=== PATIENT | male | born 2000 | race Caucasian/White ===

== ENCOUNTER 2021-01-23 13:58 | Emergency (ER) | payer OTHER ==
[2021-01-23 14:51] VITALS: RESP 18; TEMP 102.1
[2021-01-23] MEDS ORDERED: SODIUM CHLORIDE 0.9% 1,000 ML IV ONE (17:06)
[2021-01-23] MEDS ORDERED: SODIUM CHLORIDE 0.9% 500 ML 500 ML IV ONE (17:06)
[2021-01-23] MEDS ORDERED: IBUPROFEN IV 800 MG in SODIUM CHLORIDE 0.9% 250 ML IV ONE (17:06)
[2021-01-23] MEDS ORDERED: ONDANSETRON 4 MG/2 ML VIAL IVP STA (17:06)
[2021-01-23] MEDS ORDERED: DEXAMETHASONE SOD PHOSPHATE 10 MG/ML 1 ML VIAL IV STA (17:06)
[2021-01-23] MEDS ORDERED: ACETAMINOPHEN ORAL SUSP 160 MG/5 ML CUP PO ONE (17:06)
[2021-01-23 17:34] LABS: Appearance,Urine Clear (Clear); Bilirubin,Urine Negative (Negative); Blood,Urine Negative (Negative); Color,Urine Yellow; Glucose,Urine (UA) Negative (Negative); Ketones,Urine 4+ (Negative); Leukocyte Esterase,Urine Negative (Negative); Nitrite,Urine Negative (Negative); Protein,Urine Trace (Negative); Specific Gravity,Urine 1.022 (1.001-1.035)
[2021-01-23 17:41] LABS: ALT 426 U/L (4-49); AST 138 U/L (17-59); African American GFR (CKD) >90 (>60 ml/min/1.73 sqM); Albumin 4.3 g/dL (3.5-5.0); Alkaline Phosphatase 273 U/L (38-126); Anion Gap 12 mmol/L; Blood Urea Nitrogen 13 mg/dL (9-20); Calcium 9.4 mg/dL (8.4-10.2); Carbon Dioxide 25 mmol/L (22-30); Chloride 106 mmol/L (98-107); Glucose 83 mg/dL (74-99); Non-African American GFR(CKD) >90 (>60 ml/min/1.73 sqM); Potassium 4.3 mmol/L (3.5-5.1); Sodium 143 mmol/L (137-145); Total Bilirubin 0.6 mg/dL (0.2-1.3); Total Protein 7.4 g/dL (6.3-8.2)
[2021-01-23] MEDS ORDERED: METOCLOPRAMIDE 5 MG/ML 2 ML VIAL IVP STA (17:49)
[2021-01-23] MEDS ORDERED: diphenhydrAMINE 50 MG/ML 1 ML VIAL IVP STA (17:49)
[2021-01-23 17:57] LABS: HCT 48.9 % (39.0-53.0); HGB 16.5 gm/dL (13.0-17.5); MCH 30.8 pg (25.0-35.0); MCHC 33.7 g/dL (31.0-37.0); MCV 91.2 fL (80.0-100.0); Mean Platelet Volume 8.1; Platelet Count 219 k/uL (150-450); RBC 5.36 m/uL (4.30-5.90); RDW 12.9 % (11.5-15.5); WBC 12.5 k/uL (4.0-11.0)
[2021-01-23 18:09] LABS: Lymphocytes # (M) 9.88 k/uL (1.0-4.8); Monocytes # (M) 0.38 k/uL (0-1.0); Neutrophils # (M) 2.25 k/uL (1.3-7.7); Neutrophils % (M) 18 %; Nucleated Red Blood Cells 0 /100 WBC (0-0); Total Cells Counted 100
[2021-01-23 18:12] LABS: Reactive Lymphocytes Present
[2021-01-23 18:58] VITALS: BP 111/71; PULSE 69
--- NOTE | 2021-01-23 19:02 | ED ---
General Adult HPI - General Chief complaint: ENT Stated complaint: [place]/Rash/SARATH Time Seen by Provider: 01/23/21 16:11 Source: patient Mode of arrival: ambulatory Limitations: no limitations - History of Present Illness Initial comments: 20 year-old male patient diagnosed with infectious mononucleosis on 01/19/21, coming in today for worsening sore throat, nausea, vomiting, and body aches. Patient states that he has been unable to hold down any food or fluids. He has been taking zofran without relief. He is unable to swallow pills so has not been able to take tylenol or motrin. States he is having some upper abdominal pain. He denies any chronic medical conditions. Denies any falls or abdominal injury. Did develop rash to the left arm today. Patient denies any recent cough, shortness of breath, chest pain, diarrhea, constipation, back pain, numbness, tingling, hematuria, dysuria, urinary urgency, urinary frequency, headache, visual changes, or any other complaints. - Related Data Previous Rx's Medication Instructions Recorded Metoclopramide [Reglan] 10 mg PO Q8H PRN #10 tab 01/23/21 predniSONE 50 mg PO DAILY #3 tab 01/23/21 Allergies Allergy/AdvReac Type Severity Reaction Status Date / Time aripiprazole [From Abilify] AdvReac Confusion Verified 04/21/18 17:13 Review of Systems ROS Statement: Those systems with pertinent positive or pertinent negative responses have been documented in the HPI. ROS Other: All systems not noted in ROS Statement are negative. Past Medical History Past Medical History: No Reported History History of Any Multi-Drug Resistant Organisms: None Reported Past Surgical History: No Surgical Hx Reported Past Psychological History: No Psychological Hx Reported Smoking Status: Never smoker Past Alcohol Use History: None Reported Past Drug Use History: None Reported General Exam Limitations: no limitations General appearance: alert, in no apparent distress, other (This is a well- developed, well-nourished adult male patient in no acute distress. Vital signs upon presentation are temperature 102.1F, pulse 130, respirations 18, blood pressure 116/77, pulse ox 98% on room air.) ENT exam: Present: mucous membranes moist, TM's normal bilaterally. Absent: normal oropharynx (Pharyngeal erythema, tonsillar hypertrophy, bilateral tonsillar exudate. Tonsils are symmetric, uvula is midline.) Neck exam: Present: normal inspection, lymphadenopathy (Bilateral anterior cervical lymphadenopathy). Absent: tenderness, meningismus Respiratory exam: Present: normal lung sounds bilaterally. Absent: respiratory distress, wheezes, rales, rhonchi, stridor Cardiovascular Exam: Present: normal rhythm, tachycardia, normal heart sounds. Absent: systolic murmur, diastolic murmur, rubs, gallop, clicks GI/Abdominal exam: Present: soft, normal bowel sounds. Absent: distended, tenderness, guarding, rebound, rigid Neurological exam: Present: alert, oriented X3, CN II-XII intact Psychiatric exam: Present: normal affect, normal mood Skin exam: Present: warm, dry, intact, normal color. Absent: rash Course Vital Signs 01/23/21 01/23/21 14:48 18:58 Temperature 102.1 F H Pulse Rate 130 H 69 Respiratory 18 18 Rate Blood Pressure 116/77 111/71 O2 Sat by Pulse 98 97 Oximetry Medical Decision Making - Medical Decision Making 20 -year-old male patient recently diagnosed with infectious mononucleosis presented to the emergency department today for evaluation of sore throat, vomiting, body aches, abdominal pain. Physical examination did reveal mild generalized abdominal tenderness. There is evidence for pharyngeal erythema with tonsillar hypertrophy and exudate. He has lymphadenopathy. Labs reviewed and did reveal mildly elevated white blood cell count. Electrolytes were normal. Did have ketones in the urine. He is given 1500 mL of normal saline. IV steroids, ibuprofen, and oral Tylenol. I did discuss findings results with him. He'll be discharged with a short course of steroids and Reglan for nausea. He is instructed to obtain liquid Tylenol Motrin [id number] so 20 swallow. He is instructed to follow-up the primary care physician for recheck in 1-2 days. Return parameters were discussed in detail. He verbalizes understanding and agrees with this plan. Case discussed with my attending Dr. Garay. - Lab Data Result diagrams: 01/23/21 17:18 01/23/21 17:18 Lab Results 01/23/21 01/23/21 01/23/21 Range/Units 17:18 17:18 17:18 WBC 12.5 H (4.0-11.0) k/uL RBC 5.36 (4.30-5.90) m/uL Hgb 16.5 (13.0-17.5) gm/dL Hct 48.9 (39.0-53.0) % MCV 91.2 (80.0-100.0) fL MCH 30.8 (25.0-35.0) pg MCHC 33.7 (31.0-37.0) g/dL RDW 12.9 (11.5-15.5) % Plt Count 219 (150-450) k/uL MPV 8.1 Sodium 143 (137-145) mmol/L Potassium 4.3 (3.5-5.1) mmol/L Chloride 106 (98-107) mmol/L Carbon Dioxide 25 (22-30) mmol/L Anion Gap 12 mmol/L BUN 13 (9-20) mg/dL Creatinine 0.87 (0.66-1.25) mg/dL Est GFR (CKD-EPI)AfAm >90 (>60 ml/min/1.73 sqM) Est GFR (CKD-EPI)NonAf >90 (>60 ml/min/1.73 sqM) Glucose 83 (74-99) mg/dL Calcium 9.4 (8.4-10.2) mg/dL Total Bilirubin 0.6 (0.2-1.3) mg/dL AST 138 H (17-59) U/L ALT 426 H (4-49) U/L Alkaline Phosphatase 273 H (38-126) U/L Total Protein 7.4 (6.3-8.2) g/dL Albumin 4.3 (3.5-5.0) g/dL Urine Color Yellow Urine Appearance Clear (Clear) Urine pH 6.0 (5.0-8.0) Ur Specific [place] 1.022 (1.001-1.035) Urine Protein Trace H (Negative) Urine Glucose (UA) Negative (Negative) Urine Ketones 4+ H (Negative) Urine Blood Negative (Negative) Urine Nitrite Negative (Negative) Urine Bilirubin Negative (Negative) Urine Urobilinogen 2.0 (<2.0) mg/dL Ur Leukocyte Esterase Negative (Negative) Disposition Clinical Impression: Infectious mononucleosis Disposition: HOME SELF-CARE Condition: Good Instructions (If sedation given, give patient instructions): Mononucleosis (ED) Additional Instructions: Increase fluids. Alternate Tylenol and Motrin, consider getting liquid children's from the store. Complete steroid prescription and full. Follow up with the primary care physician for recheck in 1-2 days. Avoid injury to the abdomen, if you have any falls or injuries proceed to the emergency department immediately. Prescriptions: predniSONE 50 mg PO DAILY #3 tab Metoclopramide [Reglan] 10 mg PO Q8H PRN #10 tab PRN Reason: Vomiting Is patient prescribed a controlled substance at d/c from ED?: No Referrals: Allison Rudd FNPBC [Primary Care Provider] - 1-2 days Time of Disposition: 19:15
== END 2021-01-23 19:34 | disposition home or self-care (01) ==
LOC: EC 13:58
DX: B27.90 Infectious mononucleosis, unspecified without complication (principal); J02.9 Acute pharyngitis, unspecified
CPT/HCPCS: 36415; 80053; 85025; 81003; 99284; 96365; 96375 ×3; 96361; J1200; J1100; J2765; J1741